=== PATIENT | male | born 1970 | race African-American/Black ===

== ENCOUNTER 2017-08-07 08:44 | Emergency (ER) | payer MEDICAID ==
[~2017-08-07] VITALS: Ht 162.6 cm; Wt 63.6 kg
[2017-08-07 08:57] VITALS: BP 154/102
== END 2017-08-07 09:54 | disposition home or self-care (01) ==
LOC: EMS 08:47
DX: R07.81 Pleurodynia (principal); F17.210 Nicotine dependence, cigarettes, uncomplicated
CPT/HCPCS: 99281; 99406

== ENCOUNTER 2017-10-10 10:06 | Emergency (ER) | payer MEDICAID ==
[~2017-10-10] VITALS: Ht 160 cm; Wt 63.6 kg
[2017-10-10] MEDS ORDERED: IBUPROFEN 600 MG TABLET PO ONE (10:45)
[2017-10-10 12:45] VITALS: BP 133/90
== END 2017-10-10 12:46 | disposition home or self-care (01) ==
LOC: EMS 10:06
DX: S82.841A Displaced bimalleolar fracture of right lower leg, initial encounter for closed fracture (principal); F17.210 Nicotine dependence, cigarettes, uncomplicated; W19.XXXA Unspecified fall, initial encounter; Y93.01 Activity, walking, marching and hiking; Y92.828 Other wilderness area as the place of occurrence of the external cause; Y99.8 Other external cause status
CPT/HCPCS: 29515; 99284